=== PATIENT | male | born 1955 | race Hispanic/Latino ===

== ENCOUNTER 2016-04-15 14:27 | Emergency (ER) | payer BC ==
[~2016-04-15] VITALS: Ht 185.4 cm; Wt 121.6 kg
[2016-04-15] MEDS ORDERED: LISI5TAB10 PO (14:44)
[2016-04-15] MEDS ORDERED: BIAXIN250 MG OR (14:45)
[2016-04-15 16:21] LABS: PLATELET COUNT 192 K/uL (142-355)
[2016-04-15 16:26] LABS: POTASSIUM 4.1 mmol/L (3.6-5.2); SODIUM 134 mmol/L (136-145)
[2016-04-15] MEDS ORDERED: TRAM50TA PO (17:43)
[2016-04-15] MEDS ORDERED: CODESYP18 PO (17:43)
== END 2016-04-15 17:48 | disposition home or self-care (01) ==
LOC: ED 14:27
PROVIDERS: Specialist
DX: J11.1 Influenza due to unidentified influenza virus with other respiratory manifestations (principal)
CPT/HCPCS: 36415; 80048; 85027; 87804; 99283